=== PATIENT | female | born 1975 | race African-American/Black ===

== ENCOUNTER 2017-08-23 12:14 | Emergency (ER) | payer MEDICAID ==
[2017-08-23 12:49] LABS: BASOPHILS 0 % (0-2); EOSINOPHILS 0 % (0-7); HEMATOCRIT 38.5 % (36.0-48.0); HEMOGLOBIN 12.5 g/dL (12-16); LYMPHOCYTES 34.3 % (15-50); MCH 31.4 pg (26.0-34.0); MCHC 32.5 g/dL (31.0-37.0); MCV 96.7 fL (80.0-100.0); MEAN PLATELET VOLUME 9.5 fL (7.4-10.4); MONOCYTES 7.9 % (2-11); NEUTROPHILS 57.8 % (40-80); PLATELET COUNT 225 10x3/uL (130-400); RBC 3.98 10x6/uL (4.00-5.40); RDW 13.3 % (11.5-14.5); WBC 4.3 10x3/uL (4.8-10.8)
[2017-08-23 13:15] LABS: ALBUMIN 3.5 g/dL (3.4-5.0); ANION GAP 14.6 mmol/L (8-16); BILIRUBIN - TOTAL 0.29 mg/dL (0.2-1.3); CALCIUM 9.5 mg/dL (8.5-10.1); CARBON DIOXIDE 23.5 mmol/L (21.0-32.0); CREATININE - SERUM 1.2 mg/dL (0.6-1.3); PHENYTOIN (DILANTIN) 15.2 ug/mL (10.0-20.0); POTASSIUM - SERUM 3.1 mmol/L (3.5-5.1); PROTEIN - SERUM 8.2 g/dL (6.4-8.2)
[2017-08-23 15:51] LABS: APPEARANCE CLOUDY (CLEAR); BILIRUBIN NEGATIVE (NEGATIVE); COLOR YELLOW (YELLOW); GLUCOSE NEGATIVE (NEGATIVE); KETONE NEGATIVE (NEGATIVE); NITRITE POSITIVE (NEGATIVE); PROTEIN TRACE mg/dL (NEGATIVE); UROBILINOGEN NORMAL (NORMAL)
[2017-08-23 15:52] LABS: BACTERIA MANY /hpf (NONE SEEN); EPITHELIAL CELLS 0-5 /hpf (0-5); WHITE CELLS - URINE >50 /hpf (0-5)
[2017-08-23 15:58] LABS: UDS - AMPHET NEGATIVE QUAL (NEGATIVE); UDS - BARB NEGATIVE QUAL (NEGATIVE); UDS - BENZO NEGATIVE QUAL (NEGATIVE); UDS - COCAINE NEGATIVE QUAL (NEGATIVE); UDS - OPIATE NEGATIVE QUAL (NEGATIVE); UDS - PCP NEGATIVE QUAL (NEGATIVE); UDS - THC NEGATIVE QUAL (NEGATIVE)
== END 2017-08-23 16:41 | disposition home or self-care (01) ==
LOC: D.ER 12:14
PROVIDERS: Emergency Medicine
DX: R56.9 Unspecified convulsions (principal); N39.0 Urinary tract infection, site not specified; E11.9 Type 2 diabetes mellitus without complications; Z79.4 Long term (current) use of insulin; F84.0 Autistic disorder

== ENCOUNTER 2018-05-03 11:02 | Emergency (ER) | payer MEDICARE, MEDICAID ==
[~2018-05-03] VITALS: Ht 152.4 cm; Wt 79.5 kg
[2018-05-03 11:32] VITALS: Ht 152.4 cm; Wt 79.5 kg
[2018-05-03] MEDS ORDERED: AFRIN15 ML (11:35)
[2018-05-03] MEDS ORDERED: DILANTIN100 MG (11:35)
[2018-05-03] MEDS ORDERED: HUMULIN N100 U/ML (11:36)
[2018-05-03] MEDS ORDERED: COUMADIN5 MG (11:36)
[2018-05-03 12:25] LABS: BASOPHILS 0 % (0-2); EOSINOPHILS 0 % (0-7); HEMATOCRIT 42.4 % (36.0-48.0); HEMOGLOBIN 13.9 g/dL (12-16); IMMATURE GRANULOCYTES 0.2 % (0-5); LYMPHOCYTES 17.1 % (15-50); MCH 31.2 pg (26.0-34.0); MCHC 32.8 g/dL (31.0-37.0); MCV 95.1 fL (80.0-100.0); MEAN PLATELET VOLUME 10.7 fL (7.4-10.4); MONOCYTES 6.8 % (2-11); NEUTROPHILS 75.9 % (40-80); PLATELET COUNT 234 10x3/uL (130-400); RBC 4.46 10x6/uL (4.00-5.40); RDW 14.2 % (11.5-14.5); WBC 5.9 10x3/uL (4.8-10.8)
[2018-05-03 12:56] LABS: INR 2.81 (0.85-1.17); PROTIME 28.8 SECONDS (11.6-15.0)
[2018-05-03 13:12] LABS: ALBUMIN 3.3 g/dL (3.4-5.0); BILIRUBIN - TOTAL 0.26 mg/dL (0.2-1.3); CALCIUM 8.8 mg/dL (8.5-10.1); CARBON DIOXIDE 24.3 mmol/L (21.0-32.0); CREATININE - SERUM 0.9 mg/dL (0.6-1.3); PHENYTOIN (DILANTIN) 21.9 ug/mL (10.0-20.0); POTASSIUM - SERUM 4.3 mmol/L (3.5-5.1); PROTEIN - SERUM 7.7 g/dL (6.4-8.2)
[2018-05-03 14:13] LABS: APPEARANCE HAZY (CLEAR); BILIRUBIN NEGATIVE (NEGATIVE); COLOR YELLOW (YELLOW); GLUCOSE NEGATIVE (NEGATIVE); KETONE NEGATIVE (NEGATIVE); NITRITE NEGATIVE (NEGATIVE); PROTEIN TRACE mg/dL (NEGATIVE); RED CELLS - URINE OCC /hpf (0-5); SPECIFIC GRAVITY 1.015 (1.005-1.020)
[2018-05-03 14:14] LABS: BACTERIA MODERATE /hpf (NONE SEEN); EPITHELIAL CELLS 0-5 /hpf (0-5); MUCUS <1+ /lpf (NONE SEEN); UDS - AMPHET NEGATIVE QUAL (NEGATIVE); UDS - BARB NEGATIVE QUAL (NEGATIVE); UDS - BENZO NEGATIVE QUAL (NEGATIVE); UDS - COCAINE NEGATIVE QUAL (NEGATIVE); UDS - OPIATE NEGATIVE QUAL (NEGATIVE); UDS - PCP NEGATIVE QUAL (NEGATIVE); UDS - THC NEGATIVE QUAL (NEGATIVE)
[2018-05-03] MEDS ORDERED: MACROBID100 MG PO (14:50)
[2018-05-03 15:04] VITALS: BP 146/98
== END 2018-05-03 15:04 | disposition home or self-care (01) ==
LOC: D.ER 11:02
PROVIDERS: Family Medicine
DX: G40.909 Epilepsy, unspecified, not intractable, without status epilepticus (principal); Z79.01 Long term (current) use of anticoagulants; E11.9 Type 2 diabetes mellitus without complications; Z79.4 Long term (current) use of insulin; N39.0 Urinary tract infection, site not specified; R48.0 Dyslexia and alexia; F31.9 Bipolar disorder, unspecified

== ENCOUNTER 2018-12-24 18:30 | Observation (INO) | payer MEDICARE, MEDICAID ==
[~2018-12-24] VITALS: Ht 152.4 cm; Wt 68.0 kg
[~2018-12-24 18:30] MED LIST: AFRIN15 ML; COUMADIN5 MG PO; DILANTIN100 MG; HUMULIN N100 U/ML SC; MACROBID100 MG PO
[2018-12-24] MEDS ORDERED: KLONOPIN1 MG PO (18:32)
[2018-12-24 19:33] LABS: APPEARANCE CLEAR (CLEAR); BILIRUBIN NEGATIVE (NEGATIVE); COLOR YELLOW (YELLOW); GLUCOSE NEGATIVE (NEGATIVE); KETONE NEGATIVE (NEGATIVE); NITRITE NEGATIVE (NEGATIVE); PROTEIN NEGATIVE (NEGATIVE); UROBILINOGEN NORMAL (NORMAL)
[2018-12-24 19:57] LABS: UDS - AMPHET NEGATIVE QUAL (NEGATIVE); UDS - BARB NEGATIVE QUAL (NEGATIVE); UDS - BENZO NEGATIVE QUAL (NEGATIVE); UDS - COCAINE NEGATIVE QUAL (NEGATIVE); UDS - OPIATE NEGATIVE QUAL (NEGATIVE); UDS - PCP NEGATIVE QUAL (NEGATIVE); UDS - THC NEGATIVE QUAL (NEGATIVE)
[2018-12-24 20:53] LABS: BASOPHILS 0 % (0-2); EOSINOPHILS 0 % (0-7); HEMATOCRIT 40.9 % (36.0-48.0); HEMOGLOBIN 13.3 g/dL (12-16); IMMATURE GRANULOCYTES 0.2 % (0-5); LYMPHOCYTES 42.8 % (15-50); MCH 30.4 pg (26.0-34.0); MCHC 32.5 g/dL (31.0-37.0); MCV 93.6 fL (80.0-100.0); MEAN PLATELET VOLUME 9.3 fL (7.4-10.4); MONOCYTES 12.2 % (2-11); NEUTROPHILS 44.8 % (40-80); PLATELET COUNT 216 10x3/uL (130-400); RBC 4.37 10x6/uL (4.00-5.40); RDW 14.8 % (11.5-14.5); WBC 5.1 10x3/uL (4.8-10.8)
[2018-12-24 20:54] LABS: ALBUMIN 2.9 g/dL (3.4-5.0); ANION GAP 11.7 mmol/L (8-16); BILIRUBIN - TOTAL 0.26 mg/dL (0.2-1.3); CALCIUM 8.6 mg/dL (8.5-10.1); CARBON DIOXIDE 26.1 mmol/L (21.0-32.0); CREATININE - SERUM 1.4 mg/dL (0.6-1.3); POTASSIUM - SERUM 3.8 mmol/L (3.5-5.1); PROTEIN - SERUM 7.1 g/dL (6.4-8.2)
[2018-12-24 21:02] LABS: PHENYTOIN (DILANTIN) 33.2 ug/mL (10.0-20.0)
--- NOTE | 2018-12-24 23:02 | NUR ---
I have reviewed this patient and I concur with the Shift Assessment completed by the Licensed Practical Nurse today this shift.
--- NOTE | 2018-12-25 00:23 | NUR ---
NS STOP TIME IS 0020.
--- NOTE | 2018-12-25 00:30 | NUR ---
RECEIVED TO ROOM VIA STRECHER FROM ER. AWAKE,ALERT.NO DISTRESS NOTED. RESP UNLAOBORED. NO COMPLAINTS VOICED. ORIENTED TO ROOM. MOTHER AT BEDSIDE.
[2018-12-25 00:38] VITALS: BP 140/96; BMI 29.3
[2018-12-25 04:30] VITALS: BP 123/81
[2018-12-25 05:41] LABS: BASOPHILS 0 % (0-2); EOSINOPHILS 0 % (0-7); HEMATOCRIT 42.7 % (36.0-48.0); HEMOGLOBIN 13.9 g/dL (12-16); IMMATURE GRANULOCYTES 0.2 % (0-5); LYMPHOCYTES 40.4 % (15-50); MCH 30.7 pg (26.0-34.0); MCHC 32.6 g/dL (31.0-37.0); MCV 94.3 fL (80.0-100.0); MEAN PLATELET VOLUME 9.7 fL (7.4-10.4); MONOCYTES 8.5 % (2-11); NEUTROPHILS 50.9 % (40-80); PLATELET COUNT 218 10x3/uL (130-400); RBC 4.53 10x6/uL (4.00-5.40); RDW 14.7 % (11.5-14.5); WBC 5.4 10x3/uL (4.8-10.8)
[2018-12-25 06:20] LABS: ANION GAP 11.8 mmol/L (8-16); CALCIUM 8.7 mg/dL (8.5-10.1); CARBON DIOXIDE 25.2 mmol/L (21.0-32.0); CREATININE - SERUM 1.3 mg/dL (0.6-1.3); PHENYTOIN (DILANTIN) 31.4 ug/mL (10.0-20.0)
[2018-12-25 09:25] VITALS: BP 136/98
[2018-12-25 11:01] LABS: APPEARANCE CLEAR (CLEAR); BILIRUBIN NEGATIVE (NEGATIVE); COLOR YELLOW (YELLOW); GLUCOSE NEGATIVE (NEGATIVE); KETONE NEGATIVE (NEGATIVE); NITRITE NEGATIVE (NEGATIVE); PROTEIN NEGATIVE (NEGATIVE); SPECIFIC GRAVITY 1.015 (1.005-1.020); UROBILINOGEN NORMAL (NORMAL)
[2018-12-25 11:02] LABS: BACTERIA FEW /hpf (NONE SEEN); EPITHELIAL CELLS 0-5 /hpf (0-5); MUCUS <1+ /lpf (NONE SEEN); RED CELLS - URINE 0-5 /hpf (0-5); WHITE CELLS - URINE RARE /hpf (0-5)
--- NOTE | 2018-12-25 12:15 | NUR ---
RT AC IV NOT WORKING. D/C IV WITH TIP INTACT. ATTEMPTED TO START NEW IV, WAS UNSUCCESSFUL, WILL HAVE VASCULAR NURSE START IV.
[2018-12-25 12:46] VITALS: BP 124/95
[2018-12-25 14:16] VITALS: Ht 152.4 cm; Wt 68.0 kg
[2018-12-25 16:23] VITALS: BP 117/87
--- NOTE | 2018-12-25 19:45 | NUR ---
PT SITTING UP IN BED, NO SIGNS OF DISTRESS. ALERT AND ORIENTED. MOTHER BEDSIDE. IV LEFT HAND INFUSING NS @ 100. NO REDNESS OR SWELLING AT INSERTION SITE, DRESSING CDI. DENIES NEEDS AT THIS TIME. CL IN REACH, WILL CONT TO MONITOR
[2018-12-25 20:00] VITALS: BP 137/100
[2018-12-26] VITALS: BP 125/95
[2018-12-26 04:00] VITALS: BP 130/86
--- NOTE | 2018-12-26 07:10 | NUR ---
INITIAL ROUNDING ON THE PATIENT, PATIENT IS AWAKE, HER MOTHER AT THE BEDSIDE. PATIENT DENIES PAIN, DENIES ANY NEEDS AT THIS TIME. DENIES PAIN.
[2018-12-26 07:22] LABS: INR 4.29 (0.85-1.17); PROTIME 40.3 SECONDS (11.6-15.0)
[2018-12-26 08:18] VITALS: BP 125/90
[2018-12-26] MEDS ORDERED: KEPPRA500 MG PO (11:34)
[2018-12-26 12:24] VITALS: BP 135/83
[2018-12-26] MEDS ORDERED: BASAGLAR K100 UNIT/1 SC (13:18)
[2018-12-26] MEDS ORDERED: GLIMEPIRIDE1 MG PO (13:21)
--- NOTE | 2018-12-26 14:08 | NUR ---
THE PATIENTS IV REMOVED, CATH TIP INTACT. DISCHARGE PAPERS GONE OVER WITH THE PATIENT AND HER MOTHER. THE RIDE TO GO HOME WILL BE HERE AT 5 PM TO PICK THEM UP.
== END 2018-12-26 17:00 | disposition home or self-care (01) ==
LOC: D.ER 18:30 → D.EDHOLD 22:06 → D.M3 22:06 → OBSVTIME 22:06 → D.M3 22:58
PROVIDERS: Family Medicine; ADMIT Family Medicine; ATTEND Family Medicine
DX: G40.509 Epileptic seizures related to external causes, not intractable, without status epilepticus (principal); T42.0X5A Adverse effect of hydantoin derivatives, initial encounter; Z79.01 Long term (current) use of anticoagulants; E11.9 Type 2 diabetes mellitus without complications; Z79.4 Long term (current) use of insulin; E86.0 Dehydration; N17.9 Acute kidney failure, unspecified; Z86.711 Personal history of pulmonary embolism